=== PATIENT | male | born 1950 | race Caucasian/White ===

== ENCOUNTER 2018-07-30 19:04 | Emergency (ER) | payer MEDICARE ==
[~2018-07-30] VITALS: Ht 180.3 cm; Wt 75.0 kg
[~2018-07-30 19:04] MED LIST: LEVAQUIN500 MG PO; LEXAPRO10 MG PO
[2018-07-30 19:09] VITALS: Ht 180.3 cm; Wt 75.0 kg
[2018-07-30] MEDS ORDERED: VENTOLIN HFA18 GM INH (19:12)
[2018-07-30] MEDS ORDERED: PROTONIX40 MG PO (19:12)
[2018-07-30] MEDS ORDERED: ATIVAN1 MG PO (19:12)
[2018-07-30 19:51] LABS: BASOPHILS 0.1 % (0-2); EOSINOPHILS 0 % (0-7); HEMATOCRIT 44.5 % (42.0-54.0); HEMOGLOBIN 15.4 g/dL (13.5-17.5); IMMATURE GRANULOCYTES 0.2 % (0-5); LYMPHOCYTES 30.6 % (15-50); MCH 31.1 pg (26.0-34.0); MCHC 34.6 g/dL (31.0-37.0); MCV 89.9 fL (80.0-100.0); MEAN PLATELET VOLUME 10.2 fL (7.4-10.4); MONOCYTES 5.7 % (2-11); NEUTROPHILS 63.4 % (40-80); PLATELET COUNT 178 10x3/uL (130-400); RBC 4.95 10x6/uL (4.20-6.10); WBC 9.7 10x3/uL (4.8-10.8)
[2018-07-30 21:00] LABS: ALBUMIN 3.6 g/dL (3.4-5.0); ALKALINE PHOSPHATASE 110 U/L (46-116); ALT (SGPT) 57 U/L (10-68); BILIRUBIN - TOTAL 0.33 mg/dL (0.2-1.3); CALC OSMOLALITY 271 mosm/kg (275-300); CALCIUM 7.8 mg/dL (8.5-10.1); CARBON DIOXIDE 17.1 mmol/L (21.0-32.0); CHLORIDE - SERUM 97 mmol/L (98-107); CREATININE - SERUM 0.9 mg/dL (0.6-1.3); GLUCOSE 91 mg/dL (74-106); POTASSIUM - SERUM 4.2 mmol/L (3.5-5.1); PROTEIN - SERUM 7.6 g/dL (6.4-8.2); SODIUM 135 mmol/L (136-145); UREA NITROGEN 18 mg/dL (7-18); eGFR NON AFRICAN AMERICAN 89 mL/min (90-120)
[2018-07-31 09:20] VITALS: BP 128/72
== END 2018-07-31 09:22 | disposition home or self-care (01) ==
LOC: D.ER 19:04
PROVIDERS: Family Medicine
DX: F10.129 Alcohol abuse with intoxication, unspecified (principal); J44.9 Chronic obstructive pulmonary disease, unspecified; Z86.11 Personal history of tuberculosis